=== PATIENT | female | born 1965 | race American Indian/Alaskan Native ===

== ENCOUNTER 2016-03-09 11:04 | Outpatient (CLI) | payer BC, OTHER ==
--- NOTE | 2016-03-09 15:25 | Mammography Report ---
BILATERAL DIGITAL SCREENING MAMMOGRAM : 03/09/16 11:04:00 CLINICAL: Routine screening. COMPARISON:02/05/15 FINDINGS: The breasts are heterogeneously dense, which may obscure small masses.No mass, architectural distortion or suspicious calcifications. IMPRESSION: No mammographic evidence of malignancy. BI-RADS CATEGORY: 1 -- Negative RECOMMENDATION: Routine mammographic screening in one year. COMMENT: Patient follow-up letters are generated by our [employer] application.
== END 2016-03-09 11:05 | disposition home or self-care (01) ==
LOC: SPVIMAG 11:04
PROVIDERS: ATTEND Obstetrics & Gynecology
DX: Z12.31 Encounter for screening mammogram for malignant neoplasm of breast (principal)
CPT/HCPCS: 77067; G0202